=== PATIENT | male | born 1965 | race Caucasian/White ===

== ENCOUNTER 2024-02-24 21:43 | Emergency (ER) | payer BC ==
[~2024-02-24] VITALS: Ht 167.6 cm; Wt 115.0 kg
[2024-02-24 21:55] VITALS: TEMP 98.2
[2024-02-24 23:30] VITALS: BP 133/99; PULSE 96; RESP 16; O2SAT 99
== END 2024-02-24 23:35 | disposition home or self-care (01) ==
LOC: ER 21:44
DX: S80.02XA Contusion of left knee, initial encounter (principal); W19.XXXA Unspecified fall, initial encounter; Y93.89 Activity, other specified; Y92.89 Other specified places as the place of occurrence of the external cause; Y99.8 Other external cause status
CPT/HCPCS: 73564; 99283